=== PATIENT | female | born 1940 | race Caucasian/White ===

== ENCOUNTER 2018-10-18 07:52 | Inpatient (IN) | payer OTHER ==
[~2018-10-18] VITALS: Wt 5.0 kg
--- NOTE | 2018-10-18 08:41 | NUR ---
PTE REFEIERE ANEMIA.SE LE REALIZO LABORATORIO LA CUAL SEEL RESULTADO ES 5.9 PTE ES REFERIDA POR EL CARDIOLOGO.SE ACOMODA EN CRAIG.
--- NOTE | 2018-10-18 09:35 | NUR ---
SE ORIENTA A PTE SOBRE PROCESO DE VENOPUNCION, PTE REFIERE ENTENDER INF JESS POR RN GUTIERREZ. PTE SE HACE GRACIELA DE MUESTRAS Y TUBOS PILOTOS POR RN BRE PARA 2 UNIDADES DE PRBC SE ENVIA LOS MISMOS A BANCO DE ORA SE MANTIENE PTE BAJO OBSERVACION EN ESPERA DE DISPONIBILIDAD DE PRBC.
--- NOTE | 2018-10-18 12:15 | NUR ---
SE COMIENZA 1ERA FRACCION DE LA 1ERA UNIDAD DE PRBC'S. SE MONITOREA A PACIENTE [id number].
--- NOTE | 2018-10-18 16:00 | NUR ---
SE RECIBE PTE ALERTA Y ORIENTADA X 3 ESFERAS EN CAMA CON BARANDAS ELEVADAS,SIN FAMILIAR AL MOMENTO DE LA CLAUDIA.AREAS DE VENOPUNCIONES PATENTES Y LIBRES DE EDEMA CON FLUIDOS DE MANTENIMIENTO Y PRIMERA PARTE DE PRIMERA UNIDAD DE PRBC FRACC BAJANDO SIN DIFICULTAD.PENDIENTE A EVALUACION DE .SE CATRINA BAJO OBSERVACION.
[2018-10-22] MEDS ORDERED: PANTOPRAZOLE SO40 MG PO (17:04)
[2018-10-22] MEDS ORDERED: LOPRESSOR25 MG PO (17:04)
[2018-10-22] MEDS ORDERED: FAMOTIDINE20 MG PO (17:04)
[2018-10-22] MEDS ORDERED: INTEGRA PLUS C1 EACH PO (17:05)
== END 2018-10-22 20:03 | disposition home or self-care (01) | DRG 384 ==
LOC: ER 07:52 → MEDJ 16:57
PROVIDERS: ADMIT Internal Medicine
PROC: 30233N1 Transfusion of Nonautologous Red Blood Cells into Peripheral Vein, Percutaneous Approach (ICD-10-PCS; 2018-10-18)
PROC: 4A12X4Z Monitoring of Cardiac Electrical Activity, External Approach (ICD-10-PCS; 2018-10-18)
PROC: 0DB78ZX Excision of Stomach, Pylorus, Via Natural or Artificial Opening Endoscopic, Diagnostic (ICD-10-PCS; principal; 2018-10-21)
DX: K25.7 Chronic gastric ulcer without hemorrhage or perforation (principal); K29.50 Unspecified chronic gastritis without bleeding; D50.8 Other iron deficiency anemias; I48.0 Paroxysmal atrial fibrillation